=== PATIENT | female | born 1990 | race Caucasian/White ===

== ENCOUNTER 2023-11-11 21:57 | Emergency (ER) | payer OTHER ==
[~2023-11-11] VITALS: Ht 152.4 cm; Wt 49.0 kg
[2023-11-11] MEDS ORDERED: SODIUM CHLORIDE 0.9% 1,000 ML IV STA (22:22)
[2023-11-11] MEDS ORDERED: KETOROLAC TROMETHAMINE 30 MG/ML SDV IV ONE (22:25)
[2023-11-11] MEDS ORDERED: DICYCLOMINE HCL 10 MG/CAP PO ONE (22:25)
[2023-11-11 22:37] LABS: BASO% 0.5 % (0-3); EOS% 1.3 % (0-8); HEMATOCRIT 39.5 % (37.0-47.0); LYMPH% 47.2 % (15-41); MEAN CELL VOLUME 91.9 fL CALC (80.0-100.0); MEAN CORPUSCULAR HGB 30.2 pG CALC (26.0-32.0); MEAN CORPUSCULAR HGB CONC 32.9 g/dL CAL (32.0-36.0); MONO% 7.3 % (2-13); NEUT# 3.4 thou/uL (2.00-7.15); NEUT% 43.7 % (42-76); RED BLOOD COUNT 4.3 mill/uL (4.20-5.60); RED CELL DISTRI WIDTH 12.1 % (11.5-15.5)
[2023-11-11 22:38] LABS: URINE BILIRUBIN - DIPSTICK Negative (NEGATIVE); URINE BLOOD DIPSTICK Trace-lysed (NEGATIVE); URINE COLOR Yellow; URINE GLUCOSE - DIPSTICK Negative (NEGATIVE); URINE KETONE Negative (NEGATIVE); URINE LEUK ESTERASE Negative (NEGATIVE); URINE NITRITE - DIPSTICK Negative (Negative); URINE PH 5.5 (4.5-8.0); URINE PROTEIN - DIPSTICK Trace mg/dL (NEG-TRACE); URINE SPECIFIC GRAVITY >=1.030; URINE UROBILINOGEN - DIPSTICK 0.2 E.U./dL (0.2)
[2023-11-11] MEDS ORDERED: PROMETHAZINE HCL 25 MG/ML AMP IV ONE (22:40)
[2023-11-11 23:10] LABS: ALBUMIN 5.5 g/dL (3.2-5.0); BILIRUBIN, TOTAL 0.3 mg/dL (0.02-1.3); CREATININE 0.7 mg/dL (0.5-1.0); MAGNESIUM 2.1 mg/dL (1.6-2.3); POTASSIUM 3.3 mmol/l (3.5-5.1); TOTAL PROTEIN 8.9 g/dL (6.3-8.2)
[2023-11-11 23:31] VITALS: BP 120/57
[2023-11-12] VITALS: BP 113/74
[2023-11-12] LABS: TSH, 3RD GENERATION 2.27 uIU/mL (0.47 - 4.68)
[2023-11-12 00:30] VITALS: BP 126/81
[2023-11-12 01:30] VITALS: BP 107/82
[2023-11-12 02:00] VITALS: BP 120/77
[2023-11-12 02:30] VITALS: BP 113/72
[2023-11-12] MEDS ORDERED: REGLAN10 MG PO (02:53)
[2023-11-12 03:05] VITALS: BP 113/72
== END 2023-11-12 03:05 | disposition home or self-care (01) | DRG 392 ==
LOC: ED 21:57
PROVIDERS: Family Medicine
DX: K31.89 Other diseases of stomach and duodenum (principal); Z72.0 Tobacco use
CPT/HCPCS: Q9967